=== PATIENT | male | born 1960 | race American Indian/Alaskan Native ===

== ENCOUNTER 2018-11-27 11:31 | Outpatient (CLI) | payer MEDICARE, OTHER ==
--- NOTE | 2018-11-27 13:38 | XRay Report ---
ROUTINE CHEST, TWO VIEWS: HISTORY: COPD. No comparison. Previous thoracic surgery changes are identified. Heart size is borderline. Pulmonary vascularity is within normal limits. The lungs are mildly hyperinflated but clear. The bony thorax is grossly intact. IMPRESSION: Mild hyperinflation. Borderline heart size.
--- NOTE | 2018-12-05 02:27 | Pulmonary Function Test ---
SPIROMETRY REPORT REFERRING PHYSICIAN: Dr. Cesar Khalil Spirometry revealed FVC, FEV1 is normal, FEV1/FVC ratio is normal. MVV is normal. Flow volume loop appears to be normal. IMPRESSION: Normal spirometry. No evidence of chronic obstructive pulmonary disease or obstruction noted. JOB# [id number] NE/NTS
== END 2018-11-27 11:32 | disposition home or self-care (01) ==
LOC: PF 11:31
PROVIDERS: ATTEND Internal Medicine
DX: J44.9 Chronic obstructive pulmonary disease, unspecified (principal); J98.11 Atelectasis; R94.31 Abnormal electrocardiogram [ECG] [EKG]; I10 Essential (primary) hypertension; I25.10 Atherosclerotic heart disease of native coronary artery without angina pectoris
CPT/HCPCS: 71046; 93005; 93010; 94010